=== PATIENT | female | born 1950 | race Caucasian/White ===

== ENCOUNTER → 2017-12-25 | Outpatient (CLI) | payer MEDICARE, OTHER | END | disposition home or self-care (01) | LOC: PETCFH 08:31 | PROVIDERS: ATTEND Internal Medicine | DX: K76.9 Liver disease, unspecified (principal); D37.6 Neoplasm of uncertain behavior of liver, gallbladder and bile ducts; Z85.3 Personal history of malignant neoplasm of breast | CPT/HCPCS: 78816; A9552 ==

== ENCOUNTER → 2017-12-26 | Outpatient (CLI) | payer MEDICARE, OTHER | LOC: CFH 08:06 | PROVIDERS: ATTEND Internal Medicine | DX: Z02.9 Encounter for administrative examinations, unspecified (principal) ==

== ENCOUNTER 2018-02-11 10:09 | Day surgery (SDC) | payer MEDICARE, OTHER ==
[~2018-02-11] VITALS: Ht 172.7 cm; Wt 85.5 kg
[~2018-02-11 10:09] MED LIST: CHOL2000 PO; ESTR1PAT49 TP; GLUC1000 PO; HYDR-882 PO; ONDA4TAB7 PO; TURM500C4 PO; UBIQ100C3 PO
[2018-02-11 10:43] VITALS: BP 131/87
[2018-02-11] MEDS ORDERED: SODIUM CHLORIDE 0.9% 1,000 ML IV SCH (10:46)
[2018-02-11] MEDS ORDERED: ALPR-475 PO (10:46)
[2018-02-11] MEDS ORDERED: ACET325T14 PO (10:46)
[2018-02-11] MEDS ORDERED: CEFAZOLIN PMX 1GM/50ML 50 ML ONE (10:50)
[2018-02-11] MEDS ORDERED: CEFAZOLIN PMX 1GM/50ML 50 ML IV ONE (11:00)
[2018-02-11] MEDS ORDERED: LIDOCAINE 2%, 10ML ONE (12:02)
[2018-02-11] MEDS ORDERED: LIDOCAINE-MPF 1%, 5ML ONE ×2 (12:03)
[2018-02-11] MEDS ORDERED: NALOXONE 1 MG/ML, 2ML ONE (12:41)
[2018-02-11] MEDS ORDERED: FENTANYL PF 100 MCG/2ML ONE (12:41)
[2018-02-11] MEDS ORDERED: FLUMAZENIL 0.1 MG/1 ML, 5ML ONE (12:41)
[2018-02-11] MEDS ORDERED: MIDAZOLAM 1 MG/ML, 5ML ONE (12:41)
[2018-02-11] MEDS ORDERED: DIPHENHYDRAMINE 50 MG/ML, 1ML ONE (13:14)
== END 2018-02-11 14:50 ==
LOC: OUT 10:09
PROVIDERS: ATTEND Specialist
DX: Z45.2 Encounter for adjustment and management of vascular access device (principal); C48.2 Malignant neoplasm of peritoneum, unspecified; Z72.89 Other problems related to lifestyle; Z90.710 Acquired absence of both cervix and uterus; Z90.13 Acquired absence of bilateral breasts and nipples; Z98.890 Other specified postprocedural states; Z85.3 Personal history of malignant neoplasm of breast; Z91.040 Latex allergy status
CPT/HCPCS: 36561; 76937; 77001; 99156; 99157; C1788; C1894; J0690; J1200; J1642; J2250; J3010; J3490; J7030; 36563; J2310

== ENCOUNTER → 2018-04-01 | Outpatient (CLI) | payer MEDICARE, OTHER ==
[~2018-04-01] MED LIST changes: +ACET325T14 PO; +ALPR-475 PO; +OMNIPAQUE 350 MG/ML, 100ML BOTTLE ONE
== END | disposition home or self-care (01) ==
LOC: RAD 08:31
PROVIDERS: ATTEND Internal Medicine Hematology & Oncology
DX: E04.1 Nontoxic single thyroid nodule (principal); Z90.12 Acquired absence of left breast and nipple; C48.2 Malignant neoplasm of peritoneum, unspecified
CPT/HCPCS: 71260; 74177; J1642; Q9967

== ENCOUNTER → 2018-04-08 | Outpatient (CLI) | payer MEDICARE, OTHER ==
[~2018-04-08] MED LIST changes: -OMNIPAQUE 350 MG/ML, 100ML BOTTLE ONE
== END ==
LOC: RAD 07:29
PROVIDERS: ATTEND Internal Medicine Hematology & Oncology
DX: K44.9 Diaphragmatic hernia without obstruction or gangrene (principal); C48.2 Malignant neoplasm of peritoneum, unspecified
CPT/HCPCS: 74245

== ENCOUNTER → 2018-07-09 | Outpatient (CLI) | payer MEDICARE, OTHER ==
[~2018-07-09] MED LIST changes: +OMNIPAQUE 350 MG/ML, 100ML BOTTLE ONE
== END | disposition home or self-care (01) ==
LOC: CFH 11:00
PROVIDERS: ATTEND Internal Medicine Hematology & Oncology
DX: C48.2 Malignant neoplasm of peritoneum, unspecified (principal); K76.0 Fatty (change of) liver, not elsewhere classified; Z85.3 Personal history of malignant neoplasm of breast
CPT/HCPCS: 71260; 74177; Q9967

== ENCOUNTER → 2018-09-16 | Outpatient (CLI) | payer MEDICARE, OTHER ==
[~2018-09-16] MED LIST changes: +HYDR-3653 PO; -HYDR-882 PO
== END | disposition home or self-care (01) ==
LOC: CFH 13:07
PROVIDERS: ATTEND Internal Medicine Hematology & Oncology
DX: D18.03 Hemangioma of intra-abdominal structures (principal); K76.89 Other specified diseases of liver; E04.1 Nontoxic single thyroid nodule; R92.1 Mammographic calcification found on diagnostic imaging of breast; C48.2 Malignant neoplasm of peritoneum, unspecified
CPT/HCPCS: 71260; 74177; Q9967

== ENCOUNTER → 2019-03-10 | Outpatient (CLI) | payer MEDICARE ==
[~2019-03-10] MED LIST changes: -OMNIPAQUE 350 MG/ML, 100ML BOTTLE ONE
== END | disposition home or self-care (01) ==
LOC: RAD 12:11
PROVIDERS: ATTEND Nurse Practitioner
DX: S13.140A Subluxation of C3/C4 cervical vertebrae, initial encounter (principal); M47.812 Spondylosis without myelopathy or radiculopathy, cervical region; M25.512 Pain in left shoulder; X58.XXXA Exposure to other specified factors, initial encounter; Y93.89 Activity, other specified; Y92.89 Other specified places as the place of occurrence of the external cause; Y99.8 Other external cause status
CPT/HCPCS: 72050

== ENCOUNTER 2019-03-18 10:58 | Outpatient (CLI) | payer MEDICARE ==
[2019-03-18] MEDS ORDERED: OMNIPAQUE 350 MG/ML, 100ML BOTTLE ONE (15:28)
== END 2019-03-18 23:59 | disposition home or self-care (01) ==
LOC: PETCFH 10:58
PROVIDERS: ATTEND Internal Medicine Hematology & Oncology
DX: C48.2 Malignant neoplasm of peritoneum, unspecified (principal); R91.1 Solitary pulmonary nodule
CPT/HCPCS: 71260; 74177; 78306; A9503; Q9967

== ENCOUNTER 2019-05-14 09:36 | Inpatient (IN) | payer MEDICARE ==
[~2019-05-14] VITALS: Ht 172.7 cm; Wt 87.0 kg
[~2019-05-14 09:36] MED LIST changes: -ALPR-475 PO; +ALPR0.5T7 PO
--- NOTE | 2019-05-14 10:11 | NUR ---
pt here for rt lower abd pain that also goes across the top portion of her abd, 7/10 pain. pt stated she had a large amount of orange vomit last night as well as a large amount of loose liquid brown orange stool. pt took a tylenol 500mg and a zofran around midnight this am. pt A & O x4, skin intact, pt stated she has no lymph nodes on her lf side and a port in her upper rt chest. breast CA x3. ANDI VISITED, VSS, pt assessed, port assessed, labs drawn, MD visited. pt had a colonoscopy 7 yrs ago. call light within reach, covered with a blanket. rectal exam done by ANDI.
[2019-05-14 10:29] LABS: BASOPHILS # (AUTO) 0.02 x10^3/uL (0-0.1); BASOPHILS % (AUTO) 0 % (0-1); EOSINOPHILS # (AUTO) 0.16 x10^3/uL (0-0.4); EOSINOPHILS % (AUTO) 1 % (1-7); LYMPHOCYTES # (AUTO) 1.03 x10^3/uL (1-3.4); LYMPHOCYTES % (AUTO) 9 % (22-44); MD NO; MEAN CORPUSCULAR HEMOGLOBIN 35.1 pg (27.0-34.8); MEAN CORPUSCULAR HGB CONC 33.8 g/dL (32.4-35.8); MEAN CORPUSCULAR VOLUME 103.8 fL (80-100); MEAN PLATELET VOLUME 8.1 fL (7.4-10.4); MONOCYTES # (AUTO) 0.49 x10^3/uL (0.2-0.8); MONOCYTES % (AUTO) 4 % (2-9); NEUTROPHILS # (AUTO) 9.85 x10^3/uL (1.8-6.8); NEUTROPHILS % (AUTO) 85 % (42-75); PLATELET COUNT 207 x10^3/uL (130-400); RED BLOOD COUNT 4.12 x10^6/uL (3.82-5.3); RED CELL DISTRIBUTION WIDTH 15.9 % (9.6-15.2)
[2019-05-14] MEDS ORDERED: MORPHINE SULFATE 4 MG/ML, 1ML ONE (10:29)
[2019-05-14] MEDS ORDERED: ONDANSETRON 2MG/ML, 2ML ONE (10:29)
[2019-05-14] MEDS ORDERED: ONDANSETRON 2MG/ML, 2ML IVPush ONE (10:30)
[2019-05-14] MEDS ORDERED: SODIUM CHLORIDE FLUSH 10ML SYR IVF ONE (10:30)
[2019-05-14] MEDS ORDERED: MORPHINE SULFATE 4 MG/ML, 1ML IVPush PRN (10:30)
[2019-05-14 10:36] LABS: PROTHROMBIN TIME 10.5 Seconds (9.6-11.5)
--- NOTE | 2019-05-14 10:37 | NUR ---
PT UP TO RESTROOM, STEADY UPON AMBULATION. URINE SAMPLE OBTAINED AND WALKED TO LAB. PT REPORTING 6/10 "BURNING" ABD PAIN. PT MEDICATED ORDERED FOR PAIN/NASUEA. PT AO X 4. SKIN PWD. RESP EVEN AND UNLABORED. PT ON CONT BP AND O2 MONITORS. AT BEDSIDE. CALL LIGHT WITHIN REACH. WILL CONT TO MONITOR PT.
[2019-05-14 10:39] LABS: ALANINE AMINOTRANSFERASE 14 U/L (12-78); ALBUMIN 3.6 g/dL (3.4-5.0); ANION GAP 9 mmol/L (5-15); CALCIUM 8.9 mg/dL (8.5-10.1); CHLORIDE 111 mmol/L (98-107)
[2019-05-14 10:41] LABS: ALKALINE PHOSPHATASE 60 U/L (45-117); BILIRUBIN,TOTAL 0.5 mg/dL (0.2-1.0); TOTAL PROTEIN 6.8 g/dL (6.4-8.2)
[2019-05-14 10:44] LABS: MICROSCOPIC INDICATED
[2019-05-14 10:48] LABS: CULTURE INDICATED? NO
[2019-05-14] MEDS ORDERED: OMNIPAQUE 350 MG/ML, 100ML BOTTLE ONE (11:05)
--- NOTE | 2019-05-14 11:28 | NUR ---
PT CURRENTLY RESTING ON [employer] IN QUIET, DARK ROOM. PT AO X 4. SKIN PWD. RESP EVEN AND UNLABORED. PT REPORTS PAIN IS NOW 4/10 WHICH IS TOLERABLE PER PT. PT REPORTS MILD NAUSEA, BUT DECLINE OFFER OF MORE NAUSEA MEDICATION AT THIS TIME. AT BEDSIDE. CALL LIGHT WITHIN REACH. WILL CONT TO MONITOR PT.
[2019-05-14] MEDS ORDERED: SODIUM CHLORIDE 0.9% 1,000ML IVBOLUS ONE (12:00)
--- NOTE | 2019-05-14 12:01 | NUR ---
labs re-drawn, pt stats she is comfortable with her pain, 4/10, that it is now more like CA pain. educated about WBC counts, and stool normalcy. and her anticipated hospital stay. call light within reach, covered with a blanket, spouse at bedside. noted that if she has a stool sample that 1 is needed for lab.
--- NOTE | 2019-05-14 12:14 | NUR ---
REPORT TO CHAYA KHAN ON MED/ONC.
[2019-05-14 13:23] VITALS: BP 126/84
[2019-05-14 14:00] VITALS: BP 126/84
[2019-05-14] MEDS ORDERED: ONDANSETRON 2MG/ML, 2ML IVPush PRN (15:00)
[2019-05-14] MEDS ORDERED: ACETAMINOPHEN 325 MG TABLET PO PRN (15:00)
[2019-05-14] MEDS ORDERED: hydrALAzine 20 MG/ML, 1ML IVPush PRN (15:00)
[2019-05-14] MEDS ORDERED: PROMETHAZINE 25 MG/ML, 1ML IM PRN (15:00)
[2019-05-14] MEDS ORDERED: ONDANSETRON ODT 4 MG PO PRN (15:00)
[2019-05-14 15:43] LABS: FREE T4 (FREE THYROXINE) 1.21 ng/dL (0.76-1.46)
[2019-05-14] MEDS: morphine SULFATE 10 MG/ML, 1ML IVPush PRN ×2 (15:48→16:00)
[2019-05-14 15:55] LABS: HEMOGLOBIN A1C 5.3 % (4.2-6.3)
[2019-05-14] MEDS: PIPERACILLIN/TAZO/PMX 3.375GM 50 ML IV SCH ×2 (17:10→23:25)
[2019-05-14] MEDS: SODIUM CHLORIDE 0.9% 1,000 ML IV SCH ×2 (17:10→23:26)
[2019-05-14] MEDS: OXYcodone IR 5MG TABLET PO PRN ×2 (18:46→23:25)
[2019-05-14 19:39] VITALS: BP 117/76
[2019-05-14] MEDS ORDERED: DOCUSATE 100 MG CAPSULE PO PRN (21:00)
[2019-05-14 22:17] VITALS: BP 115/74
[2019-05-15 01:47] VITALS: BP 107/71
[2019-05-15] MEDS: SODIUM CHLORIDE 0.9% 1,000 ML IV SCH ×2 (04:26→11:39)
[2019-05-15] MEDS: PIPERACILLIN/TAZO/PMX 3.375GM 50 ML IV SCH ×4 (04:26→22:26)
[2019-05-15] MEDS: OXYcodone IR 5MG TABLET PO PRN ×4 (04:27→19:56)
[2019-05-15 05:09] LABS: BASOPHILS # (AUTO) 0.04 x10^3/uL (0-0.1); BASOPHILS % (AUTO) 0 % (0-1); EOSINOPHILS # (AUTO) 0.08 x10^3/uL (0-0.4); EOSINOPHILS % (AUTO) 1 % (1-7); LYMPHOCYTES # (AUTO) 1.79 x10^3/uL (1-3.4); LYMPHOCYTES % (AUTO) 14 % (22-44); MD NO; MEAN CORPUSCULAR HEMOGLOBIN 34.4 pg (27.0-34.8); MEAN CORPUSCULAR HGB CONC 33.3 g/dL (32.4-35.8); MEAN CORPUSCULAR VOLUME 103.5 fL (80-100); MEAN PLATELET VOLUME 8.1 fL (7.4-10.4); MONOCYTES # (AUTO) 0.79 x10^3/uL (0.2-0.8); MONOCYTES % (AUTO) 6 % (2-9); NEUTROPHILS # (AUTO) 10.26 x10^3/uL (1.8-6.8); NEUTROPHILS % (AUTO) 79 % (42-75); PLATELET COUNT 183 x10^3/uL (130-400); RED BLOOD COUNT 3.79 x10^6/uL (3.82-5.3); RED CELL DISTRIBUTION WIDTH 16.1 % (9.6-15.2)
[2019-05-15 05:25] LABS: CHLORIDE 112 mmol/L (98-107)
[2019-05-15 05:31] LABS: ALANINE AMINOTRANSFERASE 13 U/L (12-78); ALBUMIN 3.1 g/dL (3.4-5.0); ALKALINE PHOSPHATASE 51 U/L (45-117); BILIRUBIN,TOTAL 0.7 mg/dL (0.2-1.0); CALCIUM 8.3 mg/dL (8.5-10.1); CHOL/HDL RATIO 2.8; CHOLESTEROL, TOTAL 168 mg/dL (140-239); CREATININE 0.95 mg/dL (0.55-1.02); HDL CHOL % 36 % (28-40); HDL CHOLESTEROL (DIRECT) 60 mg/dL (40-60); LDL CHOLESTEROL,CALCULATED 86 mg/dL (54-169); LDL/HDL RATIO 1.4 (0.5-3.0); TOTAL PROTEIN 6.2 g/dL (6.4-8.2); TRIGLYCERIDES 109 mg/dL (50-200); VLDL CHOLESTEROL 22 mg/dL (0-25)
[2019-05-15 06:03] LABS: ANION GAP 6 mmol/L (5-15)
[2019-05-15 08:32] VITALS: BP 104/68
[2019-05-15 12:53] VITALS: BP 108/68
[2019-05-15 13:06] VITALS: BP 118/72
[2019-05-15 18:51] VITALS: BP 107/70
[2019-05-16 00:17] VITALS: BP 101/68
[2019-05-16] MEDS: OXYcodone IR 5MG TABLET PO PRN ×4 (00:29→19:54)
[2019-05-16] MEDS: PIPERACILLIN/TAZO/PMX 3.375GM 50 ML IV SCH ×4 (04:22→23:08)
[2019-05-16 06:42] VITALS: BP 116/67
[2019-05-16 14:01] VITALS: BP 103/62
[2019-05-16 19:45] VITALS: BP 124/79
[2019-05-17] MEDS: OXYcodone IR 5MG TABLET PO PRN (01:15)
[2019-05-17 01:20] VITALS: BP 133/80
[2019-05-17] MEDS: PIPERACILLIN/TAZO/PMX 3.375GM 50 ML IV SCH ×2 (05:16→11:00)
[2019-05-17 05:58] LABS: ANION GAP 5 mmol/L (5-15); BASOPHILS # (AUTO) 0.05 x10^3/uL (0-0.1); BASOPHILS % (AUTO) 1 % (0-1); CALCIUM 8.2 mg/dL (8.5-10.1); CHLORIDE 113 mmol/L (98-107); CREATININE 0.93 mg/dL (0.55-1.02); EOSINOPHILS % (AUTO) 3 % (1-7); LYMPHOCYTES # (AUTO) 2.47 x10^3/uL (1-3.4); LYMPHOCYTES % (AUTO) 28 % (22-44); MD NO; MEAN CORPUSCULAR HGB CONC 33.8 g/dL (32.4-35.8); MEAN CORPUSCULAR VOLUME 103.4 fL (80-100); MEAN PLATELET VOLUME 8.5 fL (7.4-10.4); MONOCYTES # (AUTO) 0.47 x10^3/uL (0.2-0.8); MONOCYTES % (AUTO) 5 % (2-9); NEUTROPHILS # (AUTO) 5.55 x10^3/uL (1.8-6.8); NEUTROPHILS % (AUTO) 63 % (42-75); PLATELET COUNT 199 x10^3/uL (130-400); RED BLOOD COUNT 3.69 x10^6/uL (3.82-5.3); RED CELL DISTRIBUTION WIDTH 15.7 % (9.6-15.2)
[2019-05-17 06:48] VITALS: BP 99/64
[2019-05-17 12:50] VITALS: BP 118/75
[2019-05-17] MEDS ORDERED: OXYC5TAB3 PO (15:50)
[2019-05-17] MEDS ORDERED: METR-90 PO (15:50)
[2019-05-17] MEDS ORDERED: CIPR500T3 PO (15:50)
[2019-05-17] MEDS ORDERED: DOCU-131 PO (15:50)
== END 2019-05-17 16:30 | disposition home or self-care (01) | DRG 392 ==
LOC: ED 11:40 → EDIP 11:41 → ED 12:07 → 3NE 13:05 → 3NW 21:58
PROVIDERS: ADMIT Internal Medicine; ATTEND Internal Medicine
DX: A09 Infectious gastroenteritis and colitis, unspecified (principal); D75.89 Other specified diseases of blood and blood-forming organs; R59.0 Localized enlarged lymph nodes; Z98.82 Breast implant status; Z90.710 Acquired absence of both cervix and uterus; Z90.13 Acquired absence of bilateral breasts and nipples; Z85.3 Personal history of malignant neoplasm of breast; Z82.0 Family history of epilepsy and other diseases of the nervous system; Z80.9 Family history of malignant neoplasm, unspecified; Z82.49 Family history of ischemic heart disease and other diseases of the circulatory system; Z85.43 Personal history of malignant neoplasm of ovary; Z91.040 Latex allergy status
CPT/HCPCS: 36415; 74177; 80048; 80053; 80061; 81001; 83036; 83605; 83690; 83735; 84100; 84439; 84443; 85025; 85610; 86850; 86900; 89055; 99285; G0378; J2405; J2543; Q0162; Q9967; J2270; J7030

== ENCOUNTER 2019-08-30 10:13 | Outpatient (CLI) | payer MEDICARE ==
[~2019-08-30 10:13] MED LIST changes: +CIPR500T3 PO; +DOCU-131 PO; +METR-90 PO; +OXYC5TAB3 PO
[2019-08-30] MEDS ORDERED: OMNIPAQUE 350 MG/ML, 100ML BOTTLE ONE (12:08)
== END 2019-08-30 23:59 | disposition home or self-care (01) ==
LOC: RAD 10:13
PROVIDERS: ATTEND Internal Medicine Hematology & Oncology
DX: C48.2 Malignant neoplasm of peritoneum, unspecified (principal); N28.1 Cyst of kidney, acquired; D18.09 Hemangioma of other sites; K76.89 Other specified diseases of liver
CPT/HCPCS: 71260; 74177; Q9967

== ENCOUNTER → 2019-11-10 | Outpatient (CLI) | payer MEDICARE ==
[~2019-11-10] MED LIST changes: +OMNIPAQUE 350 MG/ML, 100ML BOTTLE ONE
== END | disposition home or self-care (01) ==
LOC: RAD 09:28
PROVIDERS: ATTEND Internal Medicine Hematology & Oncology
DX: C48.2 Malignant neoplasm of peritoneum, unspecified (principal); K76.89 Other specified diseases of liver; D18.09 Hemangioma of other sites; M62.58 Muscle wasting and atrophy, not elsewhere classified, other site
CPT/HCPCS: 71260; 74177; Q9967

== ENCOUNTER → 2019-11-26 | Outpatient (CLI) | payer MEDICARE ==
[~2019-11-26] MED LIST changes: -OMNIPAQUE 350 MG/ML, 100ML BOTTLE ONE
== END | disposition home or self-care (01) ==
LOC: PETCFH 10:35
PROVIDERS: ATTEND Internal Medicine Hematology & Oncology
DX: Z51.11 Encounter for antineoplastic chemotherapy (principal); Z45.2 Encounter for adjustment and management of vascular access device; Z85.3 Personal history of malignant neoplasm of breast; C48.2 Malignant neoplasm of peritoneum, unspecified
CPT/HCPCS: 78815; A9552

== ENCOUNTER 2020-01-18 08:11 | Outpatient (CLI) | payer MEDICARE ==
[2020-01-18] MEDS ORDERED: OMNIPAQUE 350 MG/ML, 100ML BOTTLE ONE (14:54)
== END 2020-01-18 23:59 | disposition home or self-care (01) ==
LOC: CFH 08:11
PROVIDERS: ATTEND Internal Medicine Hematology & Oncology
DX: C48.2 Malignant neoplasm of peritoneum, unspecified (principal); K76.89 Other specified diseases of liver
CPT/HCPCS: 71260; 74177; Q9967

== ENCOUNTER 2020-02-17 17:51 | Emergency (ER) | payer MEDICARE ==
[~2020-02-17] VITALS: Ht 172.7 cm; Wt 82.1 kg
--- NOTE | 2020-02-17 18:41 | NUR ---
PT TO ROOM 12 PER [facility]. PT WAS TOLD TO GO HAVE UA AND LABS DONE TODAY AT [facility], WHICH SHE DID. AFTER MD GOT RESULTS, SHE WAS CALLED AND IT WAS TOLD TO HER THAT SHE HAD BLOOD IN URINE AND HER PLATELETTE COUNT WAS LOW. MD TOLD PATIENT TO GO TO THE ED TO BE SEEN FOR THIS. PATIENT CAME TO THIS ED THINKING WE COULD PULL LABS FROM [facility]. PT IS A CANCER PATIENT. PT IN GOWN, PLACED ON MONITOR, CALL LIGHT AT BEDSIDE WITHIN REACH, AT BEDSIDE.
--- NOTE | 2020-02-17 19:11 | NUR ---
RN IN TO STRAIT CATH PATIENT, BUT CT AT BEDSIDE AND PATIENT WANTS TO WAIT UNTIL AFTER THE CT. PT STATES "I'D RATHER JUST PEE IN A CUP. I DON'T WANT THE CATH" RN WILL DISCUSS OPTIONS UPON PATIENT'S RETURN .
--- NOTE | 2020-02-17 20:06 | NUR ---
ST CATH UA, URINE SENT TO LAB. BLOOD TINGED DUE TO CATH.
[2020-02-17 20:16] LABS: MICROSCOPIC AUTO
[2020-02-17 20:24] LABS: CULTURE INDICATED? NO
[2020-02-17 20:40] VITALS: BP 124/66
== END 2020-02-17 21:03 | disposition home or self-care (01) ==
LOC: ED 20:45
DX: R31.29 Other microscopic hematuria (principal); M54.5 Low back pain; D69.59 Other secondary thrombocytopenia; D70.9 Neutropenia, unspecified
CPT/HCPCS: 74176; 81001; 99284

== ENCOUNTER 2020-05-24 10:30 | Outpatient (CLI) | payer MEDICARE ==
[2020-05-24] MEDS ORDERED: VISIPAQUE 270 MG/ML, 50ML BOTTLE ONE (11:00)
== END 2020-05-24 23:59 | disposition home or self-care (01) ==
LOC: RAD 10:30
PROVIDERS: ATTEND Internal Medicine Hematology & Oncology
DX: C48.1 Malignant neoplasm of specified parts of peritoneum (principal); Z91.040 Latex allergy status; Z79.899 Other long term (current) drug therapy
CPT/HCPCS: 36598; Q9966; 76000